=== PATIENT | female | born 1975 | race Two or more races ===

== ENCOUNTER → 2024-04-17 | Emergency (ER) | payer OTHER ==
[~2024-04-17] VITALS: Ht 157.5 cm; Wt 72.6 kg
[~2024-04-17] MED LIST: ACETAMINOPHEN 500 MG GEL..CAP PO ONE; CEFTRIAXONE SODIUM 1,000 MG VIAL IM STA; CEFTRIAXONE SODIUM 1,000 MG VIAL ONE; HYZAAR 100-121 UDTAB PO; KETOROLAC TROMETHAMINE 30 MG VIAL IM STA; KETOROLAC TROMETHAMINE 30 MG VIAL ONE; TRAMADOL HCL 50 MG TABLET PO STA
== END | disposition home or self-care (01) ==
LOC: ER 19:54
DX: K05.10 Chronic gingivitis, plaque induced (principal)

== ENCOUNTER 2024-04-18 16:13 | Emergency (ER) | payer OTHER ==
[~2024-04-18] VITALS: Ht 157.5 cm; Wt 72.6 kg
[~2024-04-18 16:13] MED LIST changes: -ACETAMINOPHEN 500 MG GEL..CAP PO ONE; -CEFTRIAXONE SODIUM 1,000 MG VIAL IM STA; -CEFTRIAXONE SODIUM 1,000 MG VIAL ONE; -KETOROLAC TROMETHAMINE 30 MG VIAL IM STA; -KETOROLAC TROMETHAMINE 30 MG VIAL ONE; -TRAMADOL HCL 50 MG TABLET PO STA
[2024-04-18] MEDS ORDERED: GUAIFEN/DEXTROMETHORPHAN/PE 10 ML BLIST.PACK PO ONE (16:32)
[2024-04-18] MEDS ORDERED: GABAPENTIN 600 MG TABLET PO STA (17:52)
[2024-04-18] MEDS ORDERED: KETOROLAC TROMETHAMINE 30 MG VIAL IM STA (17:55)
[2024-04-18 18:25] LABS: HEMATOCRIT 36.1 % (36.0-45.00); HEMOGLOBIN 12.1 g/dL (12.0-15.00); MEAN CELL VOLUME 82.1 fL (80.00-100.00); MEAN CORPUSCULAR HEMOGLOBIN 27.4 pg (27.00-32.0); MEAN CORPUSCULAR HGB CONC 33.4 g/dl (32.0-36.0); PLATELET COUNT 307 K/uL (150-450); RED CELL DISTRIBUTION WIDTH 16.1 % (11.5-14.5)
== END 2024-04-18 19:58 | disposition home or self-care (01) ==
LOC: ER 16:16
PROVIDERS: General Practice
DX: M79.2 Neuralgia and neuritis, unspecified (principal)